=== PATIENT | female | born 1985 | race Caucasian/White ===

== ENCOUNTER 2021-10-18 05:50 | Inpatient (IN) | payer BC ==
[2021-10-13 16:07] VITALS: BMI 24.3
--- NOTE | 2021-10-16 07:37 | P.HPOB ---
History of Present Illness H&P Date: 10/16/21 Chief Complaint: Uterine fibroids, menorrhagia, dysmenorrhea, pelvic pain This patient is a pleasant 36-year-old 2 para 2 female who presented to my office with complaints of pelvic pain, menorrhagia, and painful periods. Ultrasound showed multiple large fibroids and a possible submucosal fibroid. I discussed options for treatment and unfortunately due to the large size of these fibroids it was evident that a hysterectomy as her best option. I did discuss with the other physician's podiatrist assistant whether she would be a robotic candidate unfortunately she is not. November was initially scheduled for this surgery last month however upon presentation she was found to be positive for COVID. Surgery thus has been rescheduled. She did come see me in the interim because she was feeling better however repeat ultrasound showed no change from June therefore she still wishes to proceed with the surgery. Review of Systems Genitourinary: Reports as per HPI, Reports menorrhagia, Reports pelvic pain Past Medical History Additional Past Medical History / Comment(s): HEAVY FREQUENT PERIODS AND ABDOMINAL PAIN -FIBROIDS. Varicose veins; Covid August 2021 History of Any Multi-Drug Resistant Organisms: None Reported Past Surgical History: Adenoidectomy, Cholecystectomy, Orthopedic Surgery, Tonsillectomy Additional Past Surgical History / Comment(s): SINUS SURGERY, WISDOM TEETH EXTRACTIONS, RIGHT KNEE ARTHROSCOPIC Past Anesthesia/Blood Transfusion Reactions: Motion Sickness Past Psychological History: No Psychological Hx Reported Smoking Status: Never smoker Past Alcohol Use History: None Reported Past Drug Use History: None Reported - Past Family History Father Family Medical History: Cancer Additional Family Medical History / Comment(s): prostate cancer Medications and Allergies Home Medications Medication Instructions Recorded Confirmed Type Acetaminophen [Tylenol] 500 mg PO Q4-6H PRN 08/31/21 10/13/21 History Allergies Allergy/AdvReac Type Severity Reaction Status Date / Time Sulfa (Sulfonamide Allergy TINGLING Verified 10/13/21 15:51 Antibiotics) OF TONGUE Exam - OBG Physical Exam Abdomen: bowel sounds normal, no diffuse tenderness, no bruit present, no guarding noted, no hepatomegaly, no splenomegaly, no mass Vulva: both: normal Vagina: normal moisture, no discharge Cervix: no lesion, no discharge Uterus: enlarged (Uterus approximately 14-16 weeks size) Results Ultrasound repeated on October 04 shows persistent large fibroids the largest being about 6.3 cm, ovaries appear normal. Assessment and Plan Assessment: This is a pleasant 36-year-old 2 para 2 female with known symptomatic large uterine fibroids requesting definitive treatment. Plan is abdominal hysterectomy and bilateral salpingectomy. Plan is ovarian conservation. I have had a long discussion with Loretta and her about the surgery and risks including risks of infection, bleeding, possible injury to bowel, bladder, vessels, ureters and/or bladder. We discussed the risk of prolonged urinary catheterization and/or other surgeries. She understands that she is at increased risk due to the size of her uterus. We also discussed the risk of DVT and pulmonary embolism. All the patient's questions are answered and a written consent is obtained. (1) Dysmenorrhea Status: Acute Code(s): N94.6 - DYSMENORRHEA, UNSPECIFIED SNOMED Code(s): 151402611 (2) Menorrhagia Status: Acute Code(s): N92.0 - EXCESSIVE AND FREQUENT MENSTRUATION WITH REGULAR CYCLE SNOMED Code(s): 479673095 (3) Pelvic pain Status: Acute Code(s): R10.2 - PELVIC AND PERINEAL PAIN SNOMED Code(s): 79572492 (4) Uterine fibroid Status: Acute Code(s): D25.9 - LEIOMYOMA OF UTERUS, UNSPECIFIED SNOMED Code(s): 74386485
[2021-10-18] MEDS ORDERED: SCOPOLAMINE 1.5MG/72HR PATCH TRANSDERM ONE (06:11)
[2021-10-18] MEDS ORDERED: ONDANSETRON 4 MG/2 ML VIAL IVP ONE ×2 (06:11→09:03)
[2021-10-18] MEDS ORDERED: DEXAMETHASONE SOD PHOSPHATE 4 MG/ML 1 ML VIAL IV ONE (06:11)
[2021-10-18] MEDS ORDERED: LIDOCAINE 1% (10MG/ML) FOR IV START INTRADERMA PRN (06:11)
[2021-10-18] MEDS: LACTATED RINGERS 1,000 ML IV SCH ×3 (06:41→17:56)
[2021-10-18] MEDS ORDERED: MIDAZOLAM 2 MG/2 ML VIAL IVP ONE (07:06)
[2021-10-18] MEDS ORDERED: ROCURONIUM 10 MG/ML (5 ML VIAL) IV ONE (07:23)
[2021-10-18] MEDS ORDERED: ACETAMINOPHEN IV (For NPO) 1,000 MG/100 ML VIAL ONE (07:23)
[2021-10-18] MEDS ORDERED: NEOSTIGMINE 1 MG/ML 10 ML VIAL ONE (07:23)
[2021-10-18] MEDS ORDERED: GLYCOPYRROLATE 0.2 MG/ML 2 ML VIAL ONE (07:23)
[2021-10-18] MEDS ORDERED: SUCCINYLCHOLINE CHLORIDE 100 MG/5 ML SYR IV ONE (07:23)
[2021-10-18] MEDS ORDERED: MIDAZOLAM 2 MG/2 ML VIAL ONE (07:23)
[2021-10-18] MEDS ORDERED: fentaNYL (PF) 50 MCG/ML 2 ML AMP ONE (07:23)
[2021-10-18] MEDS ORDERED: LIDOCAINE 1% INJ 10MG/ML (20 ML MDV) ONE (07:23)
[2021-10-18] MEDS ORDERED: PROPOFOL 10 MG/ML 20 ML VIAL IV ONE (07:23)
[2021-10-18] MEDS ORDERED: LACTATED RINGERS 1,000 ML IV ONE ×2 (08:15→09:39)
--- NOTE | 2021-10-18 08:55 | P.OP ---
Date of Procedure: 10/18/21 Preoperative Diagnosis: #1: Pelvic pain. #2: Dysmenorrhea: #3: Menorrhagia #4: Uterine fibroids Postoperative Diagnosis: Same Procedure(s) Performed: Total abdominal hysterectomy and right salpingectomy Anesthesia: DIEGO Surgeon: Joe Guan Garment Form Assembler #1: Amelie Dunbar Estimated Blood Loss (ml): 500 Pathology: other (Uterus with attached cervix and right fallopian tube) Condition: stable Disposition: PACU Indications for Procedure: Please see dictated H&P for intimate details of this patient's admission. Brief summary this is a pleasant 36-year-old 2 para 2 female with known large uterine fibroids and significant symptoms including menorrhagia and dysmenorrhea and pelvic pain. Patient is presenting for definitive surgical therapy. Patient understands surgery and risks and risks of infection, bleeding, possible injury bowel, bladder, vessels, ureters, other organs. All the patient's questions are answered and a written consent obtained. Operative Findings: This patient had a approximately 14 week size uterus with numerous fibroids encompassing the entire uterus. Bilateral fallopian tubes and ovaries appear normal. Description of Procedure: This patient is taken to the operating room where she is laid in the supine position. She subsequent undergoes general endotracheal anesthesia without incident. With an adequate level of anesthesia she has a vaginal perineal abdo tamir prep and drape and a Cast catheter placed to straight drain. Scalpels taken Pfannenstiel skin incision is then made. A second scalpel is taken down the fascia the fascia scored with a knife. Fascial incision extended bilaterally using the Rao scissors. Fascia is then dissected off the rectus muscles sharply. Rectus muscles are and the peritoneum identified and entered sharply. Peritoneal incision extended superior and inferior without difficulty. This time inspection the pelvis shows a somewhat mobile uterus with large number of fibroids encompassing the entire uterus fundal broad ligaments etc. Both ovaries and fallopian tubes appear normal. Left fallopian tube is somewhat adherent to the pelvic sidewall. Oj retractor is then placed. The bowels packed up out of the pelvis with a wet laparotomy sponge. 2 curved Jennifer's are placed across the cornea of the uterus. Ivet clamps were then placed across the utero ovarian ligaments. The right fallopian tube is doubly clamped and suture ligated with 0 Vicryl and removed. The left fallopian tube is adherent somewhat to the pelvic sidewalls felt safest to leave this be. At this time serial clamps are then done of the uterosacral cardinal ligaments. The bladder peritoneum was taken down easily with sharp dissection as well. Serial clamps are continued until the cervix and with attached uterus is amputated and handed off to pathology. There are multiple large bleeders along the way which are made hemostatic with suture. The vaginal cuff was then closed using 0 Vicryl running locked fashion. Excellent hemostasis is noted. There is one area in the middle the cuff were [id number] 0 Vicryl was placed. Copious irrigation is done at this time. There is some bleeding on the anterior bladder flap to therefore some surgical snow was placed. This point I expect the pelvis and pelvic sidewalls and all appears to be hemostatic. The sponges were all removed and the [place] retractors move all counts are correct 3. There are bowel is allowed to fall back into its normal position. The parietal peritoneum was then identified and closed using 0 Vicryl running fashion. Rectus muscles reapproximated in 0 Vicryl interrupted fashion. Fascial incision then closed using 0 PDS. Fascial incision is intact and hemostatic. Subcutaneous tissues and closed using a 3-0 Vicryl. Skin is and closed using julian. Sterile dressing is applied. There are no complications. All counts are correct 3. Patient is awakened from anesthesia and taken to the recovery room in satisfactory condition.
[2021-10-18] MEDS: HYDROmorphone 0.5 MG/0.5 ML SYRINGE IVP PRN ×2 (09:05→09:19)
[2021-10-18] MEDS ORDERED: KETOROLAC 15 MG/ML 1 ML VIAL IVP ONE (09:07)
[2021-10-18] MEDS ORDERED: Acetaminophen-Codeine 300-30mg TAB PO PRN ×2 (09:58)
[2021-10-18] MEDS ORDERED: ONDANSETRON 4 MG/2 ML VIAL IVP PRN (09:58)
[2021-10-18] MEDS ORDERED: SIMETHICONE 80 MG CHEWABLE PO PRN (09:58)
[2021-10-18] MEDS ORDERED: diphenhydrAMINE 50 MG/ML 1 ML VIAL IVP PRN (09:58)
[2021-10-18] MEDS: SENNOSIDES-DOCUSATE SODIUM 1 EACH TAB PO SCH ×2 (11:25→21:00)
--- NOTE | 2021-10-18 14:02 | P.ANPRN ---
Procedure Note - Anesthesia - Epidural/Spinal Spinal Time Out Performed: Yes Date of Procedure: 10/18/21 Procedure Start Time: 07:05 Procedure Stop Time: 07:09 Location of Patient: PreOp Indication: Acute Post-Operative Pain Sedation Type: Sedate with meaningful contact maintained Preparation: Sterile Prep Position: Sitting Needle Guage: 25 Narrative: duramorph 300 mics and fentanyl 25 mics Blood Aspirated: No Pain Paresthesia on Injection Noted: No
[2021-10-18] MEDS: KETOROLAC 30 MG/ML 1 ML VIAL IVP PRN ×2 (14:50→21:00)
[2021-10-19] MEDS: KETOROLAC 30 MG/ML 1 ML VIAL IVP PRN ×2 (03:02→09:07)
[2021-10-19] MEDS: LACTATED RINGERS 1,000 ML IV SCH ×4 (03:10→18:38)
--- NOTE | 2021-10-19 06:33 | P.PN ---
Progress Note - Text Progress Note Date: 10/19/21 Postoperative day #1. Patient is resting without complaints. Vital signs are stable she's afebrile. Incision is intact and dry. CBC is pending. Patient is tolerating liquids without a problem. Plan today is discontinue her catheter, encourage ambulation, advance her diet, and check a CBC.
[2021-10-19 07:26] LABS: Basophils % (A) 0 %; Eosinophils # (A) 0.1 k/uL (0-0.7); Eosinophils % (A) 1 %; HCT 30.7 % (34.0-46.0); HGB 10.3 gm/dL (11.4-16.0); Lymphocytes # (A) 1.6 k/uL (1.0-4.8); Lymphocytes % (A) 18 %; MCH 33.1 pg (25.0-35.0); MCHC 33.7 g/dL (31.0-37.0); MCV 98.3 fL (80.0-100.0); Monocytes # (A) 0.5 k/uL (0-1.0); Monocytes % (A) 5 %; Neutrophils # (A) 6.9 k/uL (1.3-7.7); Neutrophils % (A) 75 %; Platelet Count 192 k/uL (150-450); RBC 3.12 m/uL (3.80-5.40); RDW 13.5 % (11.5-15.5); WBC 9.2 k/uL (3.8-10.6)
--- NOTE | 2021-10-19 07:28 | P.PN ---
Progress Note - Text Progress Note Date: 10/19/21 (375) Anesthesia Postop day 1 Subjective: Status Post total abdominal hysterectomy with Duramorph. Patient seen and examined. Doing well without complaint. VAS 0 out of 10. Up to 2 out of 10 with activity.. Slight nausea yesterday now resolved. No vomit ing or pruritus.. Afebrile. Gross lower extremity strength intact. Without apparent anesthetic complications. Objective: Vital signs reviewed Heart: Regular Rate Lungs: Good chest excursion Abdomen: Appears nondistended Assessment: Status post LANCE with Duramorph postop day 1 Plan: Continue current care with your medical management. Anticipated change in pain needs this morning. Instructions given. All questions answered.This note was dictated using [employer] software. Please be advised there is a potential for misspellings or errors in associate data scientist.
[2021-10-19] MEDS: SENNOSIDES-DOCUSATE SODIUM 1 EACH TAB PO SCH ×2 (09:09→20:16)
[2021-10-19] MEDS: IBUPROFEN 600 MG TAB PO PRN ×2 (15:33→21:42)
[2021-10-20 00:29] VITALS: RESP 16
--- NOTE | 2021-10-20 06:19 | P.PN ---
Progress Note - Text Progress Note Date: 10/20/21 Post operative day #2. Patient is resting without new complaints. Vital signs are stable and she is afebrile. Hemoglobin yesterday was 10.3. Patient is tolerating regular diet, urinating without difficulty, and ambulating. Plan today is to continue routine postoperative care and discharge home later this morning.
--- NOTE | 2021-10-20 06:33 | P.DS ---
Providers Date of admission: 10/18/21 05:50 Expected date of discharge: 10/20/21 Attending physician: Joe Guan Primary care physician: Stated None - Discharge Diagnosis(es) (1) Dysmenorrhea Current Visit: No Status: Acute (2) Menorrhagia Current Visit: No Status: Acute (3) Pelvic pain Current Visit: No Status: Acute (4) Uterine fibroid Current Visit: No Status: Acute Hospital Course: Please see dictated H&P for intimate details of this patient's admission. Brief summary is a pleasant 36-year-old 2 para 2 female who presented for definitive surgery secondary to dysmenorrhea and menorrhagia and large uterine fibroids. Patient undergoes a total abdominal hysterectomy and right salpingo- check to me. Please see dictated operative note. Postoperatively day #1 patient seen on was 10.3, her catheter is discontinued she is encouraged to ambulate. Diet is advanced. Postoperative day #2 she continues to well felt be stable for discharge home follow up with me in 1 week Procedures: Total abdominal hysterectomy and right salpingectomy Patient Condition at Discharge: Good Plan - Discharge Summary Discharge Rx Participant: Yes New Discharge Prescriptions: New Acetaminophen-Codeine 300-30mg [Tylenol w/codeine #3] 2 each PO Q6HR PRN #24 tab PRN Reason: Severe Pain Ibuprofen [Motrin] 600 mg PO Q6HR PRN #40 tab PRN Reason: Pain No Action Acetaminophen [Tylenol] 500 mg PO Q4-6H PRN PRN Reason: Pain Discharge Medication List Acetaminophen [Tylenol] 500 mg PO Q4-6H PRN 08/31/21 [History] Acetaminophen-Codeine 300-30mg [Tylenol w/codeine #3] 2 each PO Q6HR PRN #24 tab 10/20/21 [Rx] Ibuprofen [Motrin] 600 mg PO Q6HR PRN #40 tab 10/20/21 [Rx] Follow up Appointment(s)/Referral(s): Joe Guan MD [STAFF PHYSICIAN] - 1 Week (Please see me in 1 week for an incision check and in 6 weeks for final postop check.) Patient Instructions/Handouts: Hysterectomy (DC) Activity/Diet/Wound Care/Special Instructions: No heavy lifting or strenuous activities for 6 weeks. No intercourse or anything per vagina for 6 weeks. Please call if any fever, chills, excessive vaginal bleeding, and/or abdominal pain. Discharge Disposition: HOME SELF-CARE
[2021-10-20] MEDS: IBUPROFEN 600 MG TAB PO PRN (06:42)
[2021-10-20 08:01] VITALS: BP 100/52; PULSE 83; TEMP 98
== END 2021-10-20 08:40 | disposition home or self-care (01) | DRG 743 ==
LOC: 2ORMAIN 05:50 → 4FBP 08:47
PROVIDERS: ADMIT Obstetrics & Gynecology; ATTEND Obstetrics & Gynecology
PROC: 0UT50ZZ Resection of Right Fallopian Tube, Open Approach (ICD-10-PCS; principal; 2021-10-18 07:30)
PROC: 0UT90ZZ Resection of Uterus, Open Approach (ICD-10-PCS; principal; 2021-10-18 07:30)
DX: N92.0 Excessive and frequent menstruation with regular cycle (principal); D25.9 Leiomyoma of uterus, unspecified; Z86.16 Personal history of COVID-19; I83.90 Asymptomatic varicose veins of unspecified lower extremity; Z88.2 Allergy status to sulfonamides; R10.2 Pelvic and perineal pain; Z20.822 Contact with and (suspected) exposure to COVID-19
CPT/HCPCS: 81025; 85025; 86850; 86900; 86901; 87635; 88307

== ENCOUNTER → 2022-07-08 | Outpatient (CLI) | payer BC ==
[2022-07-08 10:49] LABS: HCT 41.4 % (37.2-46.3); HGB 13.5 g/dL (12.0-15.0); MCHC 32.6 g/dL (32.0-37.0); Mean Platelet Volume 9.4 fL (9.5-12.2); NRBC Per 100 WBC 0 /100 WBCS (0.0-0.0); Platelet Count 292 X 10*3/uL (140-440); RBC 4.36 X 10*6/uL (4.10-5.20); RDW 12.7 % (11.5-14.5); WBC 8.19 X 10*3/uL (4.50-10.00)
[2022-07-08 11:36] LABS: Chol/HDL Ratio 2.34 Ratio; LDL Cholesterol,Calculated 76.5 mg/dL (0.0-131.0); VLDL Calculation 11.84 mg/dL (5.00-40.00)
--- NOTE | 2022-07-11 07:14 | MM ---
Reason for Exam: Screening (asymptomatic). Patient History: Menarche at age 10. First Full-Term at age 22. Hysterectomy at age 36. Premenopausal. Patient has history of breast feeding. Maternal aunt had breast cancer. Risk Values: Trena 5 year model risk: 0.5%. NCI Lifetime model risk: 9.1%. Tissue Density: The breast tissue is extremely dense which could obscure a lesion on mammography. Findings: Analyzed By CAD. There is obscured 2.5 cm oval mass in the upper outer quadrant right breast 3 to 4 cm distance from nipple. There is a smaller 8 mm obscured mass in the outer slightly upper aspect left breast. Overall Assessment: Incomplete: need additional imaging evaluation, BI-RAD 0 Management: Diagnostic Breast Ultrasound of both breasts. Targeted bilateral ultrasound. Electronically signed and approved by: Joe Mahmood M.D.
== END | disposition home or self-care (01) ==
LOC: RADMAMWWP 06:49
PROVIDERS: ATTEND Obstetrics & Gynecology
DX: Z12.31 Encounter for screening mammogram for malignant neoplasm of breast (principal); Z13.220 Encounter for screening for lipoid disorders; Z80.3 Family history of malignant neoplasm of breast
CPT/HCPCS: 77063; 77067; 80061; 85027

== ENCOUNTER → 2022-07-15 | Outpatient (CLI) | payer BC ==
--- NOTE | 2022-07-15 09:46 | USB ---
Reason for Exam: Additional evaluation requested from abnormal screening. Patient History: Menarche at age 10. First Full-Term at age 22. Hysterectomy at age 36. Premenopausal. Patient has history of breast feeding. Maternal aunt had breast cancer. Risk Values: Trena 5 year model risk: 0.5%. NCI Lifetime model risk: 9.1%. Technique: Method: Targeted. Prior Study Comparison: 07/08/2022 Bilateral MG 3D screening mammo w/cad, [facility]. Findings: The upper outer quadrant of both breasts, the axilla of both breasts and the retroareolar of both breasts were scanned. Bilateral upper outer quadrants of the breasts were evaluated with grayscale imaging. * Right breast 10:00 4 cm from the nipple, a complex predominantly solid mass with areas of anechoic probable fluid measuring 2.7 x 1.3 x 2.6 cm which correlates with mammographic findings. * Left breast 2:00 4 cm from nipple, an anechoic cyst with posterior acoustic enhancement measuring up to 6 cm. Overall Assessment: Suspicious, BI-RAD 4 Management: Ultrasound Core Biopsy of the right breast. Lesion within the left breast is benign-appearing. Ultrasound-guided biopsy of the right breast lesion is recommended. A clinical breast exam by your physician is recommended on an annual basis and results should be correlated with mammographic findings. This exam should not preclude additional follow-up of suspicious palpable abnormalities. Results were given to the patient verbally at the time of exam. Electronically signed and approved by: Alexis Granados DO
== END | disposition home or self-care (01) ==
LOC: RADUSWWP 09:04
PROVIDERS: ATTEND Obstetrics & Gynecology
DX: R92.8 Other abnormal and inconclusive findings on diagnostic imaging of breast (principal); Z80.3 Family history of malignant neoplasm of breast

== ENCOUNTER → 2022-08-01 | Day surgery (SDC) | payer BC ==
--- NOTE | 2022-08-05 10:49 | MM ---
Reason for Exam: Post Procedure Mammogram. Last screening mammogram was performed less than 1 month ago. Patient History: Menarche at age 10. First Full-Term at age 22. Hysterectomy at age 36. Premenopausal. Patient has history of breast feeding. Maternal aunt had breast cancer. Risk Values: Trena 5 year model risk: 0.5%. NCI Lifetime model risk: 9.1%. Prior Study Comparison: 07/08/2022 Bilateral MG 3D screening mammo w/cad, [facility]. Tissue Density: Right: The breast tissue is extremely dense which could obscure a lesion on mammography. Pathology Description: Location: 10 o'clock. Marker Left Behind. Needle Type: Celero Cores: 4 Skin Nicks: 1 Gauge: 13 The procedure of ultrasound guided core biopsy was explained to the patient. Benefits, alternatives, and risks were discussed. An informed consent was then obtained. The patient was placed in supine positioning for imaging and for the procedure. The overlying skin was prepped and draped in usual sterile fashion. Lidocaine buffered with bicarbonate was used as anesthetic into the skin and subcutaneous tissue up to area of concern in the right 10:00 breast. A selam was made with surgical scalpel. Under ultrasound guidance, a 12-gauge vacuum assisted biopsy gun device was used to obtain 4 core samples. Following this, a biopsy clip was left in lesion. The patient tolerated the procedure well without any immediate complication. The patient was kept in the radiology department for short stay after the procedure and then discharged home in stable condition. Postprocedure mammogram: The patient was transferred to mammography for physician ordered post procedure mammogram for clip placement verification. Impression: Successful, uncomplicated ultrasound guided core biopsy of area of concern in the right 10:00 breast, full pathology results to follow. Pathology Results: Result: Benign, Fibrocystic change. RIGHT BREAST, 10:00, ULTRASOUND GUIDED NEEDLE CORE BIOPSY: Fibrocystic changes including fibrosis, cysts and adenosis. Pseudoangiomatous stromal hyperplasia (PASH). Overall Assessment: Benign Assessment: MG diagnostic mammo RT wo CAD - Right: Benign, BI-RAD 2. Management: Diagnostic Breast Ultrasound of the right breast in 6 months. Electronically signed and approved by: Piyush Shea M.D. Radiologis
== END ==
LOC: RADUSWWP 12:43
PROVIDERS: ATTEND Surgery
DX: N60.21 Fibroadenosis of right breast (principal); N64.89 Other specified disorders of breast; R92.8 Other abnormal and inconclusive findings on diagnostic imaging of breast; Z80.3 Family history of malignant neoplasm of breast
CPT/HCPCS: 88305; 77065; 19083; A4648

== ENCOUNTER → 2023-02-13 | Outpatient (CLI) | payer BC ==
--- NOTE | 2023-02-13 11:14 | MM ---
Reason for Exam: Follow-up at short interval from prior study. Last screening mammogram was performed 7 month(s) ago. Patient History: Menarche at age 10. First Full-Term at age 22. Hysterectomy at age 36. Premenopausal. Patient has history of breast feeding. 08/01/2022, Benign US biopsy breast VAD RT on the right side. Maternal aunt had breast cancer. Risk Values: Trena 5 year model risk: 0.7%. NCI Lifetime model risk: 11.1%. Prior Study Comparison: 11/06/2003 Bilateral Diagnostic Ultrasound, [facility]. 04/05/2010 Bilateral Diagnostic Ultrasound, [facility]. 07/08/2022 Bilateral MG 3D screening mammo w/cad, [facility]. 07/15/2022 Bilateral US breast workup limited ALEXANDREA, [facility]. 08/01/2022 Right MG diagnostic mammo RT wo CAD, [facility]. Tissue Density: The breast tissue is extremely dense which could obscure a lesion on mammography. Findings: Analyzed By CAD. Right breast biopsy clip. No new suspicious masses, calcifications or distortions. Overall Assessment: Benign, BI-RAD 2 Management: Screening Mammogram of both breasts in 6 months. Results were given to the patient verbally at the time of exam. Patient should continue monthly self-breast exams. A clinical breast exam by your physician is recommended on an annual basis. This exam should not preclude additional follow-up of suspicious palpable abnormalities. Note on Trena scores and lifetime risk: 1. A Trena score greater than 3% is considered moderate risk. If this is the case, consider specialist referral to assess eligibility for a risk reducing agent. 2. If overall lifetime risk for the development of breast cancer is 20% or higher, the patient may qualify for future screening with alternating mammogram and breast MRI. Electronically signed and approved by: Alexis Granados DO
== END | disposition home or self-care (01) ==
LOC: RADMAMWWP 10:43
PROVIDERS: ATTEND Surgery
DX: R92.8 Other abnormal and inconclusive findings on diagnostic imaging of breast (principal); Z80.3 Family history of malignant neoplasm of breast
CPT/HCPCS: 77062; 77066